=== PATIENT | female | born 1980 | race Caucasian/White ===

== ENCOUNTER 2017-02-12 02:22 | Emergency (ER) | payer SELFPAY ==
[~2017-02-12] VITALS: Ht 167.6 cm; Wt 89.0 kg
[2017-02-12 02:26] VITALS: BP 125/75; PULSE 89; RESP 16; TEMP 98.3; O2SAT 100
--- NOTE | 2017-02-12 02:48 | PD ---
HPI Chief Complaint: Alcohol/Drug Intoxication Time Seen by Provider: 02:38 Travel History International Travel<30 days: No Contact w/Intl Traveler<30days: No Traveled to known affect area: No History of Present Illness HPI This is a middle-aged white female who presents to emergency department as a Nasrin Jeffrey by EMS due to intoxication. She was brought in from the bar due to intoxication. She was visiting with friends and when they went to leave the bar she was unable to stand and ambulate. She was so intoxicated her speech was impaired. The patient was brought to the ER to ensure the patient's safety. The patient here denies any suicidal homicidal ideation. There is no evidence of trauma. She is happy and giggling. Her speech is incoherent. She is maintaining her airway. She has a gag. [facility] Past Medical History Medical History: Unable to Obtain LMP: UTO Past Surgical History Surgical History: Unable to Obtain Social History Alcohol Use: Yes Tobacco Use: No Allergies-Medications (Allergen,Severity, Reaction): Coded Allergies: Unable to Assess (Verified Allergy, Unknown, 02/12/17) Reported Meds & Prescriptions Reported Meds & Active Scripts Active Active Prescriptions or Reported Medications Unobtainable Review of Systems ROS Limitations: Intoxication Physical Exam Narrative GENERAL: This is a well-nourished, well-developed patient, in no apparent distress. Patient appears heavily intoxicated. Smells of EtOH. She is giggling and her speech is extremely slurred and incoherent. SKIN: No rashes, ecchymoses or lesions. Warm and dry. HEAD: Atraumatic. Normocephalic. EYES: PERRL, EOMI, no discharge or injection. No scleral icterus. EARS: Clear NOSE: Nasal turbinates appear normal. THROAT: Mucosa pink and moist. Airway patent. NECK: Trachea midline. supple, moves head freely. LUNGS: Clear to auscultation. CV: Regular in rhythm. ABDOMEN: Soft nontender. EXT: No clubbing cyanosis or edema. Data Data Last Documented VS Vital Signs Date Time Temp Pulse Resp B/P (MAP) Pulse Ox O2 Delivery O2 Flow Rate FiO2 02/12/17 02:34 76 18 100 Room Air 02/12/17 02:26 98.3 125/75 (92) [facility] Medical Decision Making Medical Screen Exam Complete: Yes Emergency Medical Condition: Yes Medical Record Reviewed: Yes Differential Diagnosis Differential diagnoses: Alcohol intoxication, substance abuse, electrolyte abnormality, malingering Narrative Course The patient is intoxicated. The patient will be allowed to sleep it off here in the ER. When she exhibits sobriety or sober individual can pick her up the patient will be able to be discharged. This is alcohol intoxication Diagnosis Primary Impression: Alcohol intoxication Qualified Codes: F10.920 - Alcohol use, unspecified with intoxication, uncomplicated Patient Instructions: General Instructions Additional Instructions: Rest. Increase fluids. Avoid alcohol. Avoid illegal substances. Follow-up with [facility] for detox. Do not operate a car or any heavy machinery under the influence of alcohol or drugs. Follow-up with a medical doctor this week. Return to the ER for emergencies Med/Other Pt SpecificInfo: No Meds Exist/No RX given Scripts Unable to Obtain Active Prescriptions or Reported Meds Disposition: 01 DISCHARGE HOME Condition: Stable Frank Sen Feb 12, 2017 02:48
== END 2017-02-12 07:16 | disposition home or self-care (01) ==
LOC: EDBD 02:22 → NEPD 02:22
DX: F10.920 Alcohol use, unspecified with intoxication, uncomplicated (principal)
CPT/HCPCS: 99283

== ENCOUNTER 2017-04-27 22:26 | Emergency (ER) | payer SELFPAY ==
[~2017-04-27] VITALS: Ht 170.2 cm; Wt 82.0 kg
[2017-04-27 22:35] VITALS: BP 155/80; PULSE 103; RESP 16; TEMP 98.6; O2SAT 98
--- NOTE | 2017-04-27 22:45 | PD ---
HPI Chief Complaint: Alcohol/Drug Intoxication Time Seen by Provider: 22:38 Travel History International Travel<30 days: No Contact w/Intl Traveler<30days: No Traveled to known affect area: No History of Present Illness HPI 36-year-old female presents to the ED via EMS for evaluation after being found asleep at the bar. According to EMS report the inside barrel lathe operator were unable to rouse the patient. EMS arrived and applied painful stimulation and the patient became alert. She is gradually improved in her level of consciousness over the course of the right to the ED. On presentation she denies any somatic complaints. She declines to state how much alcohol she's been drinking tonight. She denies chronic health problems and takes no daily medications. She denies illicit drug use. She denies suicidal ideation. [facility] Past Medical History Medical History: Denies Significant Hx ?: Not LMP: 04-22-17 Past Surgical History Surgical History: No Previous Surgery Social History Alcohol Use: Yes (OCC) Tobacco Use: No Substance Use: No Allergies-Medications (Allergen,Severity, Reaction): Coded Allergies: Unable to Assess (Verified Allergy, Unknown, 02/12/17) Reported Meds & Prescriptions Reported Meds & Active Scripts Active Active Prescriptions or Reported Medications Unobtainable Review of Systems ROS Limitations: Intoxication Except as stated in HPI: all other systems reviewed are Neg Physical Exam Exam Limitations: Intoxication Narrative GENERAL: Well-nourished, well-developed white female in no acute distress. PSYCHIATRIC: Cooperative. Laughing. SKIN: Focused skin assessment warm/dry. HEAD: Normocephalic. EYES: No scleral icterus. No injection or drainage. NECK: Supple, trachea midline. No JVD or lymphadenopathy. CARDIOVASCULAR: Regular rate and rhythm without murmurs, gallops, or rubs. RESPIRATORY: Breath sounds clear and equal bilaterally. No accessory muscle use. GASTROINTESTINAL: Abdomen soft, non-tender, nondistended. MUSCULOSKELETAL: No cyanosis, or edema. BACK: Nontender without obvious deformity. No CVA tenderness. Data Data Last Documented VS Vital Signs Date Time Temp Pulse Resp B/P (MAP) Pulse Ox O2 Delivery O2 Flow Rate FiO2 04/27/17 22:38 16 96 04/27/17 22:35 98.6 103 155/80 (105) MDM Medical Decision Making Medical Screen Exam Complete: Yes Emergency Medical Condition: Yes Differential Diagnosis Acute alcohol intoxication versus chronic alcoholism versus substance abuse versus other Narrative Course 36-year-old female presents to the ED via EMS for evaluation after being found asleep at the bar. According to EMS report the inside barrel lathe operator were unable to rouse the patient. EMS arrived and applied painful stimulation and the patient became alert. She is gradually improved in her level of consciousness over the course of the right to the ED. On presentation she denies any somatic complaints. She declines to state how much alcohol she's been drinking tonight. She denies chronic health problems and takes no daily medications. She denies illicit drug use. Vitals reviewed. Physical exam reveals a giggling white female in no acute distress. Chest CTA B. Abdomen soft and nontender. She is awake and alert and protecting her airway. She does not have a sober friend to give her a ride home. She'll be monitored in the ED and discharged when clinically sober. Diagnosis Primary Impression: Alcohol intoxication Qualified Codes: F10.920 - Alcohol use, unspecified with intoxication, uncomplicated Scripts Unable to Obtain Active Prescriptions or Reported Meds Disposition: 01 DISCHARGE HOME Condition: Stable Sherry Fan Apr 27, 2017 22:45
--- NOTE | 2017-04-28 05:52 | PD ---
Physical Exam Date Seen by Provider: Apr 28, 2017 Time Seen by Provider: 12:05 Narrative pt observed in ED for 2 hrs she is able to ambulate and is steady on her feet . she tried to contect sober ride , then when able to ambulte allowed to leave in a UBER which we called for her and placed her into the car . Data Data Last Documented VS Vital Signs Date Time Temp Pulse Resp B/P (MAP) Pulse Ox O2 Delivery O2 Flow Rate FiO2 04/27/17 22:38 16 96 04/27/17 22:35 98.6 103 155/80 (105) MDM Supervised Visit with [facility]: Yes Diagnosis Primary Impression: Alcohol intoxication Qualified Codes: F10.920 - Alcohol use, unspecified with intoxication, uncomplicated Patient Instructions: General Instructions, Alcohol Intoxication (ED) Departure Forms: Tests/Procedures Scripts Unable to Obtain Active Prescriptions or Reported Meds Disposition: 01 DISCHARGE HOME Condition: Stable Saran Ballard MD Apr 28, 2017 05:52
== END 2017-04-28 00:47 | disposition home or self-care (01) ==
LOC: NEPC 22:26
DX: F10.129 Alcohol abuse with intoxication, unspecified (principal)
CPT/HCPCS: 99283